=== PATIENT | male | born 1935 | race Two or more races ===

== ENCOUNTER 2023-08-11 07:56 | Outpatient (OUT) | payer MEDICARE, BC, SELFPAY ==
[2023-08-11 08:41] LABS: Anion Gap 10.6; BUN Creatinine Ratio 21.6; Calcium 10.3 mg/dL (8.5-10.1); Carbon Dioxide 29.2 mmol/L (21.0-32.0); Chloride 109 mmol/L (98-107); Estimated GFR (African America 59 (>=60); Estimated GFR (Non-African Ame 48 (>=60); Glucose 92 mg/dL (74-106); Potassium 3.8 mmol/L (3.5-5.1); Sodium 145 mmol/L (136-145)
[2023-08-11 09:01] LABS: Basophils Absolute Auto 0.1 10^3/uL (0.0-0.1); Basophils Percent Auto 1.2 % (0.2-2.0); Eosinophils Absolute Auto 0.3 10^3/uL (0.0-0.7); Eosinophils Percent Auto 3.1 % (0.9-7.0); Hematocrit 41.8 % (42.0-54.0); Immature Granulocytes Abs Auto 0.02 10^3/uL (0.00-0.03); Immature Granulocytes Pct Auto 0.2 % (0.0-0.5); Lymphocytes Absolute Auto 1.7 10^3/uL (1.2-3.8); Lymphocytes Percent Auto 20.9 % (20.5-60.0); Mean Corpuscular HGB Conc 31.1 g/dL (29.9-35.2); Mean Corpuscular Hemoglobin 30.1 pg (25.9-34.0); Mean Corpuscular Volume 96.8 fL (80.0-94.0); Mean Platelet Volume 10.9 fL (9.5-13.5); Monocytes Absolute Auto 0.6 10^3/uL (0.3-0.8); Monocytes Percent Auto 6.9 % (1.7-12.0); Neutrophils Absolute Auto 5.5 10^3/uL (1.4-6.5); Neutrophils Percent Auto 67.7 % (43.0-75.0); Platelet Count 223 10^3/uL (150-450); Red Blood Count 4.32 10^6/uL (4.70-6.10); Red Cell Distribution Width 13.8 % (11.0-15.0); White Blood Count 8.1 10^3/uL (4.0-11.0)
--- NOTE | 2023-08-11 10:00 | MR_ITS ---
The [address] [address] Patient Name: AINSLEY CHONG MRN: [id number] date: 1935 Sex: M Assigned Patient Location: MRI Current Patient Location: MRI Accession/Order Number: [id number] Exam Date: 08/11/2023 10:00 Report Date: 08/11/2023 14:09 At the request of: ANIL NAIK Procedure: MR lumbar spine wo con MR lumbar spine wo con, 08/11/2023 10:00 AM EDT INDICATION: Compression Fracture Of Lumbar Vertebra S32.000A COMPARISON: There is no appropriate prior study for comparison. TECHNIQUE: Multiplanar, multisequential MRI images of lumbar spine were obtained without contrast. FINDINGS: For dictation purposes, the lowest complete disc space in the lumbar spine considered as L5-S1. Bilateral renal lesions with T2 prolongation not fully characterized by this study and statistically may suggest simple renal cyst. 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 There is acute to subacute compression fraction of L1 with loss of height for approximately 20%. Endplate changes type I at the level of L1-L2 are noted. The remainder of vertebral height is preserved. The conus medullaris is at the level of L1. No signal abnormality within the visualized spinal cord is noted. At the level T11-T12, there is bilateral mild neuroforaminal narrowing and mild canal stenosis. At the level of T12-L1,there is bilateral mild neuroforaminal narrowing and no canal stenosis. At the level of L1-L2, there are disc bulge with severe left and moderate right neuroforaminal narrowing and no canal stenosis. At the level of L2-L3, there are disc bulge with severe right left and moderate right neuroforaminal narrowing and no canal stenosis. At the level of L3-4, there are disc bulge with moderate bilateral neuroforaminal narrowing and moderate canal stenosis. At the level of L4-5, there are disc bulge with moderate right and mild left neuroforaminal narrowing and no canal stenosis. At the level of L5-S1, there are disc bulge with severe bilateral neuroforaminal narrowing and no canal stenosis. Moderate atrophy of the right paraspinal muscle at the level of L5-S1. MR/MR lumbar spine wo con IMPRESSION: Acute to subacute compression fracture of L1 with loss of height for approximately 20%. Moderate degenerative changes of lumbar spine in particular at L1-L2, L2-L3 and L5-S1. A stat note was submitted to inform the clinician at the 2:08 PM. Electronically authenticated by: YOANA EDWARD Date: 08/11/2023 14:09
[2023-08-12 05:07] LABS: Lithium (Eskalith(R)), Serum 0.7 mmol/L (0.5-1.2)
== END 2023-08-11 07:57 | disposition home or self-care (01) ==
PROVIDERS: PCP Family Medicine; Visit Provider Family Medicine
DX: S32.000A Wedge compression fracture of unspecified lumbar vertebra, initial encounter for closed fracture (principal); N39.0 Urinary tract infection, site not specified; I10 Essential (primary) hypertension; Z51.81 Encounter for therapeutic drug level monitoring
CPT/HCPCS: 36415; 72148; 80048; 80178; 85025; 87086

== ENCOUNTER 2023-08-19 00:54 | Observation (INO) | payer MEDICARE, BC, SELFPAY ==
[2023-08-19] VITALS (9 sets, daily range): BP systolic 92–134; BP diastolic 41–93; PULSE 59–104; TEMP 36.2–37; O2SAT 92–98; BMI 20.3
--- NOTE | 2023-08-19 01:33 | ED.AMS1 ---
HPI - Altered Mental Status General Chief Complaint: Altered Mental Status Stated Complaint: altered mental status Time Seen by Provider: 08/19/23 01:21 Source: family Mode of arrival: Wheelchair Limitations: altered mental status and physical limitation History of Present Illness HPI narrative: past history of dementia. known L1 compression fracture. Lives in [place]. Brought back to [place] to live with his son to get help medically but wants to return to [place]. Not eating or drinking past few days and loosing weight. Tonight confused and trying to take the top off of the back of the commode so he could urinate in it. History of bladder CA and enlarged prostate MD complaint: Reports confusion Related Data Home Medications ?Medication ?Instructions ?Recorded ?Confirmed amlodipine 5 mg tablet 5 mg PO DAILY 08/19/23 08/19/23 aspirin 81 mg tablet,delayed 81 mg PO DAILY 08/19/23 08/19/23 release atorvastatin 80 mg tablet 80 mg PO DAILY 08/19/23 08/19/23 baclofen 10 mg tablet 5 mg PO BEDTIME 08/19/23 08/19/23 gentamicin 0.3 % eye drops 1 drp ophthalmic (eye) Q6H 08/19/23 08/19/23 lithium carbonate 300 mg capsule 300 mg PO DAILY 08/19/23 08/19/23 mirtazapine 15 mg tablet 15 mg PO DAILY 08/19/23 08/19/23 omeprazole 20 mg capsule,delayed 20 mg PO DAILY 08/19/23 08/19/23 release telmisartan 80 mg tablet 80 mg PO DAILY 08/19/23 08/19/23 tramadol 50 mg tablet 50 mg PO BEDTIME 08/19/23 08/19/23 Allergies Allergy/AdvReac Type Severity Reaction Status Date / Time No Known Drug Allergies Allergy Verified 08/19/23 01:02 Review of Systems ROS Status of ROS unobtainable due to mental status [facility] Medical History (Updated 08/19/23 @ 03:13 by Deven Dawkins MD) UTI (urinary tract infection) ?N39.0 - Urinary tract infection, site not specified (ICD-10) Degenerative disc disease Normal esophagogastroduodenoscopy (EGD) ?Z01.89 - Encounter for other specified special examinations (ICD-10) 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 neoplasm of extrahepatic bile duct (ICD-10) Bowel obstruction ?K56.609 - Unspecified intestinal obstruction, unspecified as to partial versus complete obstruction (ICD-10) Skin cancer ?C44.90 - Unspecified malignant neoplasm of skin, unspecified (ICD-10) Bladder cancer ?C67.9 - Malignant neoplasm of bladder, unspecified (ICD-10) Appendicitis ?K37 - Unspecified appendicitis (ICD-10) Stroke ?I63.9 - Cerebral infarction, unspecified (ICD-10) Dementia ?F03.90 - Unspecified dementia, unspecified severity, without behavioral disturbance, psychotic disturbance, mood disturbance, and anxiety (ICD-10) Bipolar 1 disorder ?F31.9 - Bipolar disorder, unspecified (ICD-10) Surgical History (Updated 08/19/23 @ 01:39 by Juana Schmidt) History of hernia surgery ?Z98.890 - Other specified postprocedural states (ICD-10) ?Z87.19 - Personal history of other diseases of the digestive system (ICD-10) S/P TURP (status post transurethral resection of prostate) ?Z90.79 - Acquired absence of other genital organ(s) (ICD-10) H/O shoulder surgery ?Z98.890 - Other specified postprocedural states (ICD-10) Exam Constitutional Vital Signs, click to edit/add: Last Vital Signs Pulse 104 H 08/19/23 01:02 Resp 18 08/19/23 01:02 BP 134/93 H 08/19/23 01:02 Pulse Ox 98 08/19/23 01:02 O2 Del Method Room Air 08/19/23 01:02 Common normals: no apparent distress and average body habitus (frail) Eye Common normals: EOMs intact bilaterally Respiratory Common normals: normal respiratory effort, no retractions and no use of accessory muscles Cardio Common normals: regular rate and regular rhythm GI Common normals: Normal to inspection, nondistended, normoactive bowel sounds present Extremity Common normals: normal to inspection Neuro Common normals: moves all extremities Sensorium/orientation: awake Course Vital Signs Vital signs: Vital Signs Pulse Rate 104 H 08/19/23 01:02 Respiratory Rate 18 08/19/23 01:02 Blood Pressure 134/93 H 08/19/23 01:02 Pulse Oximetry 98 08/19/23 01:02 Oxygen Delivery Method Room Air 08/19/23 01:02 Pulse Rate 104 H 08/19/23 01:02 Respiratory Rate 18 08/19/23 01:02 Blood Pressure 134/93 H 08/19/23 01:02 Pulse Oximetry 98 08/19/23 01:02 Oxygen Delivery Method Room Air 08/19/23 01:02 MDM - Altered Mental Status MDM Narrative Medical decision making narrative: patient has past history of dementia. Presents more confused than normal and not eating or drinking for a couple of days. Gross exam finds frail appearing male in no distress who is cooperative. labs positive for pyuria. Patient also found to be dehydrated. Discussed with the hospitalist and patient accepted for admission Lab Data Labs: Lab Results 08/19/23 08/19/23 Range/Units 01:58 02:11 WBC 8.1 (4.0-11.0) 10^3/uL RBC 4.18 L (4.70-6.10) 10^6/uL Hgb 12.7 L (14.0-18.0) g/dL Hct 40.2 L (42.0-54.0) % MCV 96.2 H (80.0-94.0) fL MCH 30.4 (25.9-34.0) pg MCHC 31.6 (29.9-35.2) g/dL RDW 13.9 (11.0-15.0) % Plt Count 181 (150-450) 10^3/uL MPV 10.7 (9.5-13.5) fL Neut % (Auto) 82.7 H (43.0-75.0) % Lymph % (Auto) 10.7 L (20.5-60.0) % Geary % (Auto) 5.4 (1.7-12.0) % Eos % (Auto) 0.1 L (0.9-7.0) % Baso % (Auto) 0.9 (0.2-2.0) % Neut # (Auto) 6.7 H (1.4-6.5) 10^3/uL Lymph # (Auto) 0.9 L (1.2-3.8) 10^3/uL Geary # (Auto) 0.4 (0.3-0.8) 10^3/uL Eos # (Auto) 0.0 (0.0-0.7) 10^3/uL Baso # (Auto) 0.1 (0.0-0.1) 10^3/uL Abs Immat Gran (auto) 0.02 (0.00-0.03) 10^3/uL Imm/Tot Granulo (auto) 0.2 (0.0-0.5) % Sodium 145 (136-145) mmol/L Potassium 4.3 (3.5-5.1) mmol/L Chloride 110 H (98-107) mmol/L Carbon Dioxide 25.3 (21.0-32.0) mmol/L Anion Gap 14.0 BUN 42.0 H (7.0-18.0) mg/dL Creatinine 1.63 H (0.70-1.30) mg/dL Est GFR ( Amer) 49 L (>=60) Est GFR (Non-Af Amer) 40 L (>=60) BUN/Creatinine Ratio 25.8 Glucose 120 H (74-106) mg/dL Calcium 9.7 (8.5-10.1) mg/dL Troponin I High Sens 11.6 (4.0-76.1) pg/mL Urine Color Lt. yellow (YELLOW) Urine Clarity Clear (CLEAR) Urine pH 6.0 (5.0-9.0) Ur Specific [place] 1.020 (1.005-1.025) Urine Protein Trace (NEG/TRACE) mg/dL Urine Glucose (UA) Negative (NEGATIVE) mg/dL Urine Ketones Trace A (NEGATIVE) mg/dL Urine Occult Blood Large A (NEGATIVE) Urine Nitrite Negative (NEGATIVE) Urine Bilirubin Small A (NEGATIVE) Urine Urobilinogen 2.0 A (0.2-1.0) EU/dL Ur Leukocyte Esterase Small A (NEGATIVE) Urine RBC 5-10 A (0-2) #/HPF Urine WBC 5-10 A (NONE SEEN) #/HPF Ur Squamous Epith Cells Few A (NONE/RARE) #/LPF Urine Crystals None seen (None Seen) #/HPF Urine Bacteria None seen (NONE SEEN) #/HPF Urine Casts None seen (NONE SEEN) #/LPF Urine Mucus Small A (NONE SEEN) Ur Culture Indicated? Yes Discharge Plan Discharge Stand Alone Forms: Portal Instructions Chief Complaint: Altered Mental Status Clinical Impression: Acute UTI, Altered mental status, Dehydration Patient Disposition: Home, Self-Care Prescriptions / Home Meds: No Action lithium carbonate 300 mg capsule 300 mg PO DAILY baclofen 10 mg tablet 5 mg PO BEDTIME tramadol 50 mg tablet 50 mg PO BEDTIME aspirin 81 mg tablet,delayed release (DR/EC) 81 mg PO DAILY atorvastatin 80 mg tablet 80 mg PO DAILY amlodipine 5 mg tablet 5 mg PO DAILY telmisartan 80 mg tablet 80 mg PO DAILY mirtazapine 15 mg tablet 15 mg PO DAILY omeprazole 20 mg capsule,delayed release(DR/EC) 20 mg PO DAILY gentamicin 0.3 % drops 1 drp ophthalmic (eye) Q6H Print Language: Mauritanian Additional Instructions: use ibuprofen or similar for pain Referrals: Lyn Osorio MD [Primary Care Provider] - 1 week
--- NOTE | 2023-08-19 01:37 | XR_ITS ---
The [address] [address] Patient Name: AINSLEY CHOGN MRN: [id number] date: 1935 Sex: M Assigned Patient Location: ER Current Patient Location: ER Accession/Order Number: [id number] Exam Date: 08/19/2023 01:50 Report Date: 08/19/2023 02:42 At the request of: ALESSANDRO GODOY Procedure: XR chest 1V CLINICAL HISTORY: Confusion COMPARISON: None FINDINGS: Portable AP view of the chest obtained. Cardiomediastinal silhouette is normal. Lungs are clear, no evidence of infiltrate, suspicious nodule, or mass. No evidence of significant pleural fluid on this portable projection. No acute bony abnormality. XR/XR chest 1V IMPRESSION: No acute abnormality. Electronically authenticated by: FELIX CAMARGO Date: 08/19/2023 02:42
[2023-08-19] MEDS: 0.9 % SODIUM CHLORIDE 500 ML IV (01:44)
[2023-08-19] MEDS: ONDANSETRON PF 4 MG/2 ML VIAL IV (01:47)
[2023-08-19 02:05] LABS: Basophils Absolute Auto 0.1 10^3/uL (0.0-0.1); Basophils Percent Auto 0.9 % (0.2-2.0); Eosinophils Percent Auto 0.1 % (0.9-7.0); Hematocrit 40.2 % (42.0-54.0); Hemoglobin 12.7 g/dL (14.0-18.0); Immature Granulocytes Abs Auto 0.02 10^3/uL (0.00-0.03); Immature Granulocytes Pct Auto 0.2 % (0.0-0.5); Lymphocytes Absolute Auto 0.9 10^3/uL (1.2-3.8); Lymphocytes Percent Auto 10.7 % (20.5-60.0); Mean Corpuscular HGB Conc 31.6 g/dL (29.9-35.2); Mean Corpuscular Hemoglobin 30.4 pg (25.9-34.0); Mean Corpuscular Volume 96.2 fL (80.0-94.0); Mean Platelet Volume 10.7 fL (9.5-13.5); Monocytes Absolute Auto 0.4 10^3/uL (0.3-0.8); Monocytes Percent Auto 5.4 % (1.7-12.0); Neutrophils Absolute Auto 6.7 10^3/uL (1.4-6.5); Neutrophils Percent Auto 82.7 % (43.0-75.0); Platelet Count 181 10^3/uL (150-450); Red Blood Count 4.18 10^6/uL (4.70-6.10); Red Cell Distribution Width 13.9 % (11.0-15.0); White Blood Count 8.1 10^3/uL (4.0-11.0)
[2023-08-19 02:22] LABS: BUN Creatinine Ratio 25.8; Calcium 9.7 mg/dL (8.5-10.1); Carbon Dioxide 25.3 mmol/L (21.0-32.0); Chloride 110 mmol/L (98-107); Estimated GFR (African America 49 (>=60); Estimated GFR (Non-African Ame 40 (>=60); Glucose 120 mg/dL (74-106); Potassium 4.3 mmol/L (3.5-5.1); Sodium 145 mmol/L (136-145); Troponin I High Sensitivity 11.6 pg/mL (4.0-76.1)
[2023-08-19 02:23] LABS: Bilirubin Urine SMALL (NEGATIVE); Blood Urine LARGE (NEGATIVE); Clarity Urine CLEAR (CLEAR); Color Urine LT. YELLOW (YELLOW); Glucose Urine UA NEGATIVE (NEGATIVE); Ketones Urine TRACE mg/dL (NEGATIVE); Leukocyte Esterase Urine SMALL (NEGATIVE); Nitrite Urine NEGATIVE (NEGATIVE); Protein Urine TRACE mg/dL (NEG/TRACE); Urine Microscopic Indicated YES
[2023-08-19 02:32] LABS: Bacteria Urine NONE SEEN #/HPF (NONE SEEN); Mucus Urine SMALL (NONE SEEN)
[2023-08-19 02:33] LABS: Cast Seen? NONE SEEN #/LPF (NONE SEEN); Crystals Seen? None Seen #/HPF (None Seen); Squamous Epithelial Cell Urine FEW #/LPF (NONE/RARE); Urine Culture Indicated YES
[2023-08-19] MEDS: CEFTRIAXONE 1,000 MG in 0.9 % SODIUM CHLORIDE 50 ML 100 MG IV (03:08)
--- NOTE | 2023-08-19 04:27 | PC.NURSE ---
PER SON, PT ' BASELINE IS ALERT TO NAME, DATE OF , AND MOTH. pT WAS ORIENTED TO PLACE WELL. Son stated to this nurse that when pt is feeling better pt can become verbally abusive towards staff. Son also stated that pt does have hallucinations and will speak to people that are not there.
[2023-08-19] MEDS: 0.9 % SODIUM CHLORIDE 1,000 ML 100 ML IV ×2 (05:51→15:27)
[2023-08-19 08:14] LABS: Lactate/Lactic Acid 1.4 mmol/L (0.4-2.0)
[2023-08-19 08:17] LABS: Alanine Aminotransferase 19 U/L (16-63); Albumin Globulin Ratio 1.1; Albumin Level 3.4 g/dL (3.4-5.0); Alkaline Phosphatase 98 U/L (46-116); Aspartate Amino Transferase 25 U/L (15-37); Bilirubin Direct 0.5 mg/dL (0.0-0.2); Bilirubin Total 1.4 mg/dL (0.2-1.0); Globulin 3.2 g/dL; Magnesium 2.2 mg/dL (1.8-2.4); Thyroid Stimulating Hormone 2.904 uIU/mL (0.358-3.740); Total Protein 6.6 g/dL (6.4-8.2)
--- NOTE | 2023-08-19 09:05 | SWNOTE1 ---
SW consulted for Advanced Directives. SW reviewing chart and dementia is listed as a diagnosis for pt. SW to complete assessment with pt or son to determine whether Advanced Directives can be completed or if family/patient have already completed.
[2023-08-19] MEDS: LEVOFLOXACIN IN DEXTROSE 5 % 750 MG/150 ML IV.SOLN 100 MG IV (10:12)
[2023-08-19] MEDS: TAMSULOSIN HCL 0.4 MG CAPSULE 0.400000000000000022 MG PO (10:13)
[2023-08-19] MEDS: ASPIRIN 81 MG TABLET.DR PO (10:13)
[2023-08-19] MEDS: MIRTAZAPINE 15 MG TABLET PO (10:13)
[2023-08-19] MEDS: LITHIUM CARBONATE 150 MG CAPSULE 300 MG PO (10:13)
[2023-08-19] MEDS: GENTAMICIN SULFATE 0.3% OP SOL 100 DROP/5 ML BOTTLE OP ×3 (10:13→21:23)
[2023-08-19] MEDS: ATORVASTATIN CALCIUM 40 MG TABLET 80 MG PO (10:14)
[2023-08-19] MEDS: OMEPRAZOLE 20 MG CAPSULE.DR PO (10:14)
--- NOTE | 2023-08-19 11:18 | P.HP_ITS ---
HPI H&P: HPI History of Present Illness Chief complaint: altered mental status UTI Narrative: Patient with a history of baseline dementia presented to the emergency room after midnight with increasing altered mental status. Found to have acute UTI as a complicating factor as well as some mild dehydration.. When I saw patient up on the medical surgical floor he did awaken to conversation. Seem to answer questions appropriately but seems very weak. Opioid HPI Opioid Management Most Recent Opioid Data: Last Pain Assessment 08/19/23 12:07 Last ORT Total Score 2 08/19/23 04:05 Last ORT Risk Category Low Risk 08/19/23 04:05 Review of Systems ROS Status of ROS 10 or more systems reviewed and unremark able except as noted in history and below [facility] Medical History (Updated 08/19/23 @ 03:13 by Deven Dawkins MD) UTI (urinary tract infection) ?N39.0 - Urinary tract infection, site not specified (ICD-10) Degenerative disc disease Normal esophagogastroduodenoscopy (EGD) ?Z01.89 - Encounter for other specified special examinations (ICD-10) 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 neoplasm of extrahepatic bile duct (ICD-10) Bowel obstruction ?K56.609 - Unspecified intestinal obstruction, unspecified as to partial versus complete obstruction (ICD-10) Skin cancer ?C44.90 - Unspecified malignant neoplasm of skin, unspecified (ICD-10) Bladder cancer ?C67.9 - Malignant neoplasm of bladder, unspecified (ICD-10) Appendicitis ?K37 - Unspecified appendicitis (ICD-10) Stroke ?I63.9 - Cerebral infarction, unspecified (ICD-10) Dementia ?F03.90 - Unspecified dementia, unspecified severity, without behavioral disturbance, psychotic disturbance, mood disturbance, and anxiety (ICD-10) Bipolar 1 disorder ?F31.9 - Bipolar disorder, unspecified (ICD-10) Surgical History (Updated 08/19/23 @ 01:39 by Juana Schmidt) History of hernia surgery ?Z98.890 - Other specified postprocedural states (ICD-10) ?Z87.19 - Personal history of other diseases of the digestive system (ICD-10) S/P TURP (status post transurethral resection of prostate) ?Z90.79 - Acquired absence of other genital organ(s) (ICD-10) H/O shoulder surgery ?Z98.890 - Other specified postprocedural states (ICD-10) Social History (Updated 08/19/23 @ 04:46 by Margarita Smith RN) Within the past year, how often did you have a drink containing alcohol: never Within the past year, how many standard drinks containing alcohol did you have on a typical day: 1 or 2 Within the past year, how often did you have six or more drinks on one occasion: never Total score: 0 Score interpretation: A score less than 4 is consistent with normal alcohol consumption. Smoking status: Unknown if ever smoked Second hand tobacco smoke exposure: No Non-prescribed substance use: denies use Previous occupational history: retired Known occupational exposures/hazards: No Highest level of school completed/degree received: don't know Are you now , , , , never or living with a partner: don't know In a typical week, how many times do you talk on the telephone with family, friends, or neighbors: 3 or more times per week How often do you get together with friends or relatives: 3 or more times per week How often do you attend worship or baptist services: never Do you belong to any clubs or organizations such as worship groups unions, [employer] or athletic groups, or school groups: no Total score: 1 Score interpretation: A score of less than or equal to 1 indicates the most socially isolated. Little interest or pleasure in doing things: not at all Feeling down, depressed, or hopeless: not at all Feel stressed/tense/nervous/anxious/difficulty sleeping: not at all Due to disability, difficulty making decisions: No Meds Home Medications and Allergies Home Medications ?Medication ?Instructions ?Recorded ?Confirmed ?Type amlodipine 5 mg tablet 5 mg PO DAILY 08/19/23 08/19/23 History aspirin 81 mg tablet,delayed 81 mg PO DAILY 08/19/23 08/19/23 History release atorvastatin 80 mg tablet 80 mg PO DAILY 08/19/23 08/19/23 History baclofen 10 mg tablet 10 mg PO BEDTIME 08/19/23 08/19/23 History donepezil 5 mg tablet 5 mg PO .QHS 08/19/23 08/19/23 History gentamicin 0.3 % eye drops 1 drp ophthalmic (eye) Q6H 08/19/23 08/19/23 History lithium carbonate 300 mg capsule 300 mg PO DAILY 08/19/23 08/19/23 History mirtazapine 15 mg tablet 15 mg PO DAILY 08/19/23 08/19/23 History omeprazole 20 mg capsule,delayed 20 mg PO DAILY 08/19/23 08/19/23 History release tamsulosin 0.4 mg capsule 0.4 mg PO .morning 08/19/23 08/19/23 History telmisartan 80 mg tablet 80 mg PO DAILY 08/19/23 08/19/23 History tramadol 50 mg tablet 50 mg PO BEDTIME 08/19/23 08/19/23 History Allergies Allergy/AdvReac Type Severity Reaction Status Date / Time morphine Allergy Severe Hallucinati Verified 08/19/23 04:07 ng adhesive tape Allergy Intermediate Rash Verified 08/19/23 04:07 Exam Constitutional Vital Signs, click to edit/add: Last Vital Signs Temp 97.6 F 08/19/23 08:25 Pulse 61 08/19/23 08:25 Resp 16 08/19/23 08:25 BP 92/54 08/19/23 08:25 Pulse Ox 94 L 08/19/23 08:25 O2 Del Method Room Air 08/19/23 08:25 Documenting provider has reviewed patient's vital signs: yes Common normals: no apparent distress Respiratory Common normals: normal respiratory effort Cardio Common normals: regular rate and regular rhythm GI Common normals: Normal to inspection, nondistended, normoactive bowel sounds present (Extremely thin) Extremity Common normals: normal to inspection, full ROM, normal capillary refill and no clubbing, cyanosis or edema Neuro Other: Lethargic but arousable, no focal neurological deficits Results Labs Labs: Short CBC 08/19/23 Range/Units 01:58 WBC 8.1 (4.0-11.0) 10^3/uL Hgb 12.7 L (14.0-18.0) g/dL Hct 40.2 L (42.0-54.0) % Plt Count 181 (150-450) 10^3/uL BMP 08/19/23 01:58 Sodium 145 Potassium 4.3 Chloride 110 H Carbon Dioxide 25.3 BUN 42.0 H Creatinine 1.63 H Glucose 120 H Calcium 9.7 Liver Function 08/19/23 Range/Units 01:58 Total Bilirubin 1.4 H (0.2-1.0) mg/dL Direct Bilirubin 0.5 H (0.0-0.2) mg/dL AST 25 (15-37) U/L ALT 19 (16-63) U/L Alkaline Phosphatase 98 (46-116) U/L Albumin 3.4 (3.4-5.0) g/dL Urine 08/19/23 Range/Units 02:11 Urine Color Lt. yellow (YELLOW) Urine Clarity Clear (CLEAR) Urine pH 6.0 (5.0-9.0) Ur Specific [place] 1.020 (1.005-1.025) Urine Protein Trace (NEG/TRACE) mg/dL Urine Glucose (UA) Negative (NEGATIVE) mg/dL Assessment and Plan Assessment and Plan (1) Dehydration: (2) Acute UTI: (3) Altered mental status: Plan Hypotension, altered mental status, acute kidney injury secondary to acute UTI and complicated by baseline dementia-continue with fluids, continue with IV antibiotics, cultures pending for tomorrow. Family would like if at all possible to have him discharged to home tomorrow. Not looking at any type of rehab. Dementia-continue with home medications Acute kidney injury secondary to dehydration Generalized anxiety disorder-continue with home medications, check lithium level, concerning for lithium toxicity based on renal injury GERD-continue with home medications BPH-continue with home medications Observation criteria: Patient came in after midnight, he is likely to improve to the point that he can be discharged home prior to 2 midnights. Some medically necessary treatment will not likely span 2 midnights will start patient off as observation status. Based on his symptoms and progression and overall improvement, this may need to be changed to inpatient status if medically necessary treatment is going to span 2 midnights Urinary Catheter Management Urinary Catheter Management Straight: Cath placed during this visit: no
--- NOTE | 2023-08-19 11:28 | CM.NOTE ---
Rounds made with Dr. Estrada, no discharge today. Pt lives at home with his children. PT and OT will evaluate pt today for discharge planning and possible HH.
--- NOTE | 2023-08-19 11:37 | SWNOTE1 ---
SW called pt's son to speak to him about discharge planning. Pt's son and daughter in law on phone during conversation. Pt just moved in with them 2 weeks ago. He had lived in [place] for 35 years. Pt's son and daughter in law voiced they may be in over there heads in regards to caring for him at home. Daughter in law voiced they have a safe home for him but he does wonder at night and he does voice he sees things that are not there. They also spoke about him not taking his meds either. They have been able to get him in to a PCP and they have had him assessed by neurologist. They are working on getting power of business attorney through a client server developer. They voiced they are not sure what to from here. SW did speak with them about home health, therapy and nursing possibly an aide to assist with bathing. They are in agreement. They do understand it is not nursing home. SW did also speak with them about private caregivers as well. They are interested in this list, SW to place in pt's room. Pt's son did voice he has shoulder surgery later this week. SW did speak with them about respite stay at nursing facility and it being out of pocket, but it allows caregivers to have a break. SW did also speak with them about nursing home care being out of pocket. SW also let them know about medicaid and applying for it. They voiced understanding and do not want to make any rash decisions right now. They want to pursue HH and possible caregivers. SW did review list from medicare.gov with star ratings about home health. They would like [facility]. Referral sent to [facility]. Referral included face sheet, ED note, H&, and PT/OT notes. Medicare Outpatient Observation Notice reviewed and discussed with patient's son and daughter in law. Pt. verbalized understanding and signed the form. Original given to patient and copy placed in patient?s chart.
--- NOTE | 2023-08-19 11:53 | SWNOTE1 ---
SW did speak with son and daughter in law about advanced directives, they voiced they are going through a pipe assembly worker to get this done due to pt's dementia.
--- NOTE | 2023-08-19 12:05 | CM.NOTE ---
Medicare Outpatient Observation Notice discussed with pt, pt verbalizes understanding and signs paper. Original given to pt and copy placed in pt's chart.
[2023-08-19] MEDS: LACTOSE -REDUCED (ENSURE ORIGINAL 237 ML LIQUID) PO ×2 (15:27→21:23)
--- NOTE | 2023-08-19 15:40 | SWNOTE1 ---
SW stopped in to room, pt's son in room. SW provided him with private caregiver list and list of facilities in the area in case they need respite stay or intermediate eventually.
--- NOTE | 2023-08-19 16:12 | SWNOTE1 ---
[facility] is able to accept.
--- NOTE | 2023-08-19 19:47 | PC.NURSE ---
Dark jennifer concentrated urine noted after using urinal.
[2023-08-19] MEDS: BACLOFEN 10 MG TABLET 5 MG PO (21:23)
[2023-08-19] MEDS: TRAMADOL HCL 50 MG TABLET PO (21:24)
[2023-08-19] MEDS: DONEPEZIL HCL 5 MG TABLET PO (21:29)
[2023-08-19] MEDS: LORAZEPAM 2 MG/ML 1 ML VIAL 0.5 MG IV (22:59)
[2023-08-20] MEDS: 0.9 % SODIUM CHLORIDE 1,000 ML 100 ML IV ×3 (01:37→19:46)
[2023-08-20 04:00] VITALS: BP 159/73; PULSE 65; TEMP 36.4; O2SAT 92
[2023-08-20 04:07] LABS: Lithium (Eskalith(R)), Serum 0.9 mmol/L (0.5-1.2)
[2023-08-20 04:08] LABS: Basophils Absolute Auto 0.1 10^3/uL (0.0-0.1); Basophils Percent Auto 0.8 % (0.2-2.0); Eosinophils Absolute Auto 0.1 10^3/uL (0.0-0.7); Eosinophils Percent Auto 1.6 % (0.9-7.0); Hematocrit 36.4 % (42.0-54.0); Hemoglobin 11.5 g/dL (14.0-18.0); Immature Granulocytes Abs Auto 0.02 10^3/uL (0.00-0.03); Immature Granulocytes Pct Auto 0.3 % (0.0-0.5); Lymphocytes Absolute Auto 1.2 10^3/uL (1.2-3.8); Lymphocytes Percent Auto 16.8 % (20.5-60.0); Mean Corpuscular HGB Conc 31.6 g/dL (29.9-35.2); Mean Corpuscular Hemoglobin 30.8 pg (25.9-34.0); Mean Corpuscular Volume 97.6 fL (80.0-94.0); Monocytes Absolute Auto 0.4 10^3/uL (0.3-0.8); Monocytes Percent Auto 4.9 % (1.7-12.0); Neutrophils Absolute Auto 5.6 10^3/uL (1.4-6.5); Neutrophils Percent Auto 75.6 % (43.0-75.0); Platelet Count 139 10^3/uL (150-450); Red Blood Count 3.73 10^6/uL (4.70-6.10); Red Cell Distribution Width 13.9 % (11.0-15.0); White Blood Count 7.4 10^3/uL (4.0-11.0)
[2023-08-20 04:29] LABS: Alanine Aminotransferase 15 U/L (16-63); Albumin Level 2.9 g/dL (3.4-5.0); Alkaline Phosphatase 88 U/L (46-116); Aspartate Amino Transferase 25 U/L (15-37); Bilirubin Total 0.7 mg/dL (0.2-1.0); Calcium 9.4 mg/dL (8.5-10.1); Carbon Dioxide 22.8 mmol/L (21.0-32.0); Chloride 115 mmol/L (98-107); Estimated GFR (African America >60 (>=60); Estimated GFR (Non-African Ame 55 (>=60); Globulin 2.8 g/dL; Glucose 83 mg/dL (74-106); Potassium 3.8 mmol/L (3.5-5.1); Sodium 147 mmol/L (136-145); Total Protein 5.7 g/dL (6.4-8.2)
[2023-08-20 08:00] VITALS: BP 147/80; PULSE 70; TEMP 36.3; O2SAT 92
[2023-08-20 08:50] VITALS: O2SAT 92
[2023-08-20] MEDS: CEFTRIAXONE 1,000 MG in 0.9 % SODIUM CHLORIDE 50 ML 100 MG IV (09:16)
[2023-08-20] MEDS: GENTAMICIN SULFATE 0.3% OP SOL 100 DROP/5 ML BOTTLE OP ×3 (09:20→21:47)
[2023-08-20] MEDS: ATORVASTATIN CALCIUM 40 MG TABLET 80 MG PO (09:23)
[2023-08-20] MEDS: LACTOSE -REDUCED (ENSURE ORIGINAL 237 ML LIQUID) PO ×2 (09:23→21:45)
[2023-08-20] MEDS: ASPIRIN 81 MG TABLET.DR PO (09:23)
[2023-08-20] MEDS: OMEPRAZOLE 20 MG CAPSULE.DR PO (09:23)
[2023-08-20] MEDS: MIRTAZAPINE 15 MG TABLET PO (09:23)
[2023-08-20] MEDS: LITHIUM CARBONATE 150 MG CAPSULE 300 MG PO (09:23)
--- NOTE | 2023-08-20 09:38 | CM.NOTE ---
Rounds made with Dr. Estrada, pt will discharge to home today with family and [facility].
--- NOTE | 2023-08-20 09:43 | P.DS_ITS ---
DS: Providers Provider Date of admission: 08/19/23 03:43 Primary care physician: Lyn Osorio MD Consults: 08/19/23 Consult to Dietitian Routine Reason For Exam: WEIGHT LOSS Reason for consultation: WEIGHT LOSS Has provider been notified: Yes Consult to Harvester Operator Routine Reason for consult:: Advanced Directives 08/19/23 07:43 Occupational Therapy Eval and Treat Routine Reason for consultation: Only if needed for Rehab Has provider been notified: No Physical Therapy Eval and Treat Routine Reason for consultation: Eval and Treat Has provider been notified: No DS: Diagnosis Discharge Diagnosis (1) Dehydration: (2) Acute UTI: (3) Altered mental status: Plan Hypotension, altered mental status, acute kidney injury secondary to acute UTI and complicated by baseline dementia-continue with fluids, continue with IV antibiotics, cultures pending for tomorrow. Family would like if at all possible to have him discharged to home tomorrow. Not looking at any type of rehab. Dementia-continue with home medications Acute kidney injury secondary to dehydration Generalized anxiety disorder-continue with home medications, check lithium level, concerning for lithium toxicity based on renal injury GERD-continue with home medications BPH-continue with home medications Observation criteria: Patient came in after midnight, he is likely to improve to the point that he can be discharged home prior to 2 midnights. Some medically necessary treatment will not likely span 2 midnights will start patient off as observation status. Based on his symptoms and progression and overall improvement, this may need to be changed to inpatient status if medically necessary treatment is going to span 2 midnights Urinary Catheter Management Urinary Catheter Management Straight: Cath placed during this visit: no ? DS: Summary Time Spent with Patient Time attestation: Total time spent providing and/or coordinating discharge services: Exam Constitutional Vital Signs, click to edit/add: Last Vital Signs Temp 97.4 F L 08/20/23 08:00 Pulse 70 08/20/23 08:00 Resp 20 08/20/23 08:00 BP 147/80 H 08/20/23 08:00 Pulse Ox 92 L 08/20/23 08:50 O2 Del Method Room Air 08/20/23 08:50 DS: Data Data Completed and Pending Labs on day of discharge: Labs from last 24 hours 08/20/23 08/19/23 03:55 01:58 WBC 7.4 RBC 3.73 L Hgb 11.5 L Hct 36.4 L MCV 97.6 H MCH 30.8 MCHC 31.6 RDW 13.9 Plt Count 139 L MPV 11.0 Neut % (Auto) 75.6 H Lymph % (Auto) 16.8 L [place] % (Auto) 4.9 Eos % (Auto) 1.6 Baso % (Auto) 0.8 Neut # (Auto) 5.6 Lymph # (Auto) 1.2 [place] # (Auto) 0.4 Eos # (Auto) 0.1 Baso # (Auto) 0.1 Abs Immat Gran (auto) 0.02 Imm/Tot Granulo (auto) 0.3 Sodium 147 H Potassium 3.8 Chloride 115 H Carbon Dioxide 22.8 Anion Gap 13.0 BUN 31.0 H Creatinine 1.24 Est GFR ( Amer) >60 Est GFR (Non-Af Amer) 55 L BUN/Creatinine Ratio 25.0 Glucose 83 Calcium 9.4 Total Bilirubin 0.7 AST 25 ALT 15 L Alkaline Phosphatase 88 Total Protein 5.7 L Albumin 2.9 L Globulin 2.8 Albumin/Globulin Ratio 1.0 [place] 0.9 Discharge Plan Discharge Disposition: Home Health Service Discharge Medications: New levofloxacin 500 mg tablet 500 mg PO DAILY 10 Days Qty: 10 0RF Continued lithium carbonate 300 mg capsule 300 mg PO DAILY baclofen 10 mg tablet 10 mg PO BEDTIME tramadol 50 mg tablet 50 mg PO BEDTIME aspirin 81 mg tablet,delayed release (DR/EC) 81 mg PO DAILY atorvastatin 80 mg tablet 80 mg PO DAILY amlodipine 5 mg tablet 5 mg PO DAILY telmisartan 80 mg tablet 80 mg PO DAILY mirtazapine 15 mg tablet 15 mg PO DAILY omeprazole 20 mg capsule,delayed release(DR/EC) 20 mg PO DAILY gentamicin 0.3 % drops 1 drp ophthalmic (eye) Q6H tamsulosin 0.4 mg capsule 0.4 mg PO .morning donepezil 5 mg tablet 5 mg PO .QHS Print Language: Turkish Personnel Placement Specialist/Dirt Bike Racer Instructions: Discharge with [facility], phone number is [phone]. They should contact within 48 hours of discharge. If you have not heard from them within 48 hours, reach out to the number listed above. Private Caregiver list provided and list of nursing facilities in the area provided as well. Forms: Portal Instructions Follow Up Appointments: Aug.25 @ 10:30am with Dr. sOorio [phone]
[2023-08-20] MEDS: TAMSULOSIN HCL 0.4 MG CAPSULE 0.400000000000000022 MG PO (10:53)
[2023-08-20 11:44] VITALS: BP 157/75; PULSE 65; O2SAT 94
--- NOTE | 2023-08-20 12:30 | PT.DAILY ---
Physical Therapy Daily Note PT Daily Note/Assess Start: 08/20/23 12:23 Freq: Status: Active Protocol: Document 08/20/23 10:35 SCAR (Rec: 08/20/23 12:29 SCAR [id number]) Physical Therapy Daily Note/Assessment Time In/Time Out Time In 11:38 Time Out 11:57 Subjective Subjective Patient heavily sleeping but was able to wake up. Patient does have dementia and is confused. After a few minutes patient agrees to walk and sit in chair. Post RX nursing notified therapy that patient had IV Ativan last night, so is probably still groggery from that. Therapeutic Activity Time Therapeutic Activity Minutes (minutes) 19 Therapeutic Activity Units 1 Therapeutic Activity Treatment Therapeutic Activity Comments Supine to sit with SBA, verbal cues with simple commands. Sit to stand CGA. Gait after 10' with CGA patient begins reaching for IV poll and objects and attempts to sit. Max assist x2 to prevent fall to floor. Was able to get patient to reach for each hand and was safely ambulated back to chair 10-15' with TERRAZZO FINISHER HELPER x2, mod assist as patient wanted to keep knees bent. Total Physical Therapy Time Total Therapy Minutes 19 Total Physical Therapy Units 1 Summary Daily Note Summary Patient demonstrated poor safety with gait today, required max assist x2 to prevent fall. Notified nursing and social work and they request therapy re-attempts after lunch as patient is to go home with family and HH later this afternoon. Edit Time 08/20/23 11:35 SCAR (Rec: 08/20/23 12:30 SCAR [id number]) 08/20/23 10:35=>08/20/23 11:35
--- NOTE | 2023-08-20 13:23 | PT.DAILY ---
Physical Therapy Daily Note PT Daily Note/Assess Start: 08/20/23 12:23 Freq: Status: Active Protocol: Document 08/20/23 13:00 SCAR (Rec: 08/20/23 13:23 SCAR [id number]) Physical Therapy Daily Note/Assessment Time In/Time Out Time In 13:00 Time Out 13:15 Subjective Subjective Patient up in chair but continues to be very lethargic , Lunch in front of him, but not ate, patient holding glass of OJ and had it spilled all over in his lap. Patient did wake up when aroused. Therapeutic Activity Time Therapeutic Activity Minutes (minutes) 10 Therapeutic Activity Units 1 Therapeutic Activity Treatment Chair Transfer Ability Minimum Assist Therapeutic Activity Comments Once awake, patient able to stand up from chair and shuffle over to bed with CGA to min assist. No AD as patient does not use safely. No LOB as noted this AM. Due to patient with decreased level of alertness felt it was unsafe to ambulate patient any farther at this time. Total Physical Therapy Time Total Therapy Minutes 10 Total Physical Therapy Units 1 Summary Daily Note Summary Patient continues with alertness after lunch , was able to arouse and assist patient back to bed with min assist safely but unable to attempt farther ambulation. Notified nursing, and they report this is due to medication and will see how he does with family later this evening. At this time patient is to DC home with family with HH. Patient was not safe with PT today x2 attempts.
[2023-08-20 15:22] VITALS: BP 139/78; PULSE 73; TEMP 36.2; O2SAT 93
--- NOTE | 2023-08-20 18:38 | P.PN_ITS ---
Progress Note: Subjective Subjective Interval history: Patient is somnolent but does answer some questions. He received IV Ativan for his significant agitation overnight. Exam Constitutional Vital Signs, click to edit/add: Last Vital Signs Temp 97.1 F L 08/20/23 15:22 Pulse 73 08/20/23 15:22 Resp 20 08/20/23 15:22 BP 139/78 08/20/23 15:22 Pulse Ox 93 L 08/20/23 15:22 O2 Del Method Room Air 08/20/23 15:22 Documenting provider has reviewed patient's vital signs: yes Common normals: no apparent distress Respiratory Common normals: normal respiratory effort Cardio Common normals: regular rate and regular rhythm GI Common normals: Normal to inspection, nondistended, normoactive bowel sounds present (Extremely thin) Extremity Common normals: normal to inspection, full ROM, normal capillary refill and no clubbing, cyanosis or edema Neuro Other: Lethargic but arousable, no focal neurological deficits Progress Note: Objective Labs Labs: Short CBC 08/20/23 Range/Units 03:55 WBC 7.4 (4.0-11.0) 10^3/uL Hgb 11.5 L (14.0-18.0) g/dL Hct 36.4 L (42.0-54.0) % Plt Count 139 L (150-450) 10^3/uL BMP 08/20/23 03:55 Sodium 147 H Potassium 3.8 Chloride 115 H Carbon Dioxide 22.8 BUN 31.0 H Creatinine 1.24 Glucose 83 Calcium 9.4 Liver Function 08/20/23 Range/Units 03:55 Total Bilirubin 0.7 (0.2-1.0) mg/dL AST 25 (15-37) U/L ALT 15 L (16-63) U/L Alkaline Phosphatase 88 (46-116) U/L Albumin 2.9 L (3.4-5.0) g/dL Progress Note: A&P Assessment and Plan (1) Dehydration: (2) Acute UTI: (3) Altered mental status: Plan Hypotension, altered mental status, acute kidney injury secondary to acute UTI and complicated by baseline dementia-continue with fluids, continue with IV antibiotics, check in cultures later today to see if there is any growth, patient very somnolent secondary to medications, that she will be safe for discharge to home Dementia-continue with home medications-could be a progression of his dementia with the fatigue. Acute kidney injury secondary to dehydration-improved, probably back to his baseline Generalized anxiety disorder-continue with home medications, check lithium level, concerning for lithium toxicity based on renal injury GERD-continue with home medications BPH-continue with home medications Observation criteria: With his altered mental status deteriorated, now with more fatigue, significant progression of sepsis, if he does rebound with withdrawal from the benzodiazepines he could be discharged home later today. Maintain observation status Urinary Catheter Management Urinary Catheter Management Straight: Cath placed during this visit: no
[2023-08-20 19:38] VITALS: BP 151/68; PULSE 77; TEMP 36.4; O2SAT 95
[2023-08-20] MEDS: TRAMADOL HCL 50 MG TABLET PO (21:45)
[2023-08-20] MEDS: BACLOFEN 10 MG TABLET 5 MG PO (21:45)
[2023-08-20] MEDS: DONEPEZIL HCL 5 MG TABLET PO (21:45)
[2023-08-21] VITALS: BP 172/76; PULSE 70; TEMP 36.4; O2SAT 95
[2023-08-21 03:36] VITALS: BP 156/67; PULSE 63; TEMP 36.5; O2SAT 95
[2023-08-21 05:32] LABS: Basophils Absolute Auto 0.1 10^3/uL (0.0-0.1); Basophils Percent Auto 1.2 % (0.2-2.0); Eosinophils Absolute Auto 0.2 10^3/uL (0.0-0.7); Eosinophils Percent Auto 2.4 % (0.9-7.0); Hematocrit 36.4 % (42.0-54.0); Hemoglobin 11.5 g/dL (14.0-18.0); Immature Granulocytes Abs Auto 0.01 10^3/uL (0.00-0.03); Immature Granulocytes Pct Auto 0.2 % (0.0-0.5); Lymphocytes Absolute Auto 1.1 10^3/uL (1.2-3.8); Mean Corpuscular HGB Conc 31.6 g/dL (29.9-35.2); Mean Corpuscular Hemoglobin 30.7 pg (25.9-34.0); Mean Corpuscular Volume 97.1 fL (80.0-94.0); Monocytes Absolute Auto 0.3 10^3/uL (0.3-0.8); Monocytes Percent Auto 4.8 % (1.7-12.0); Neutrophils Absolute Auto 4.9 10^3/uL (1.4-6.5); Neutrophils Percent Auto 74.4 % (43.0-75.0); Platelet Count 137 10^3/uL (150-450); Red Blood Count 3.75 10^6/uL (4.70-6.10); Red Cell Distribution Width 13.7 % (11.0-15.0); White Blood Count 6.6 10^3/uL (4.0-11.0)
[2023-08-21] MEDS: 0.9 % SODIUM CHLORIDE 1,000 ML 100 ML IV (05:35)
[2023-08-21 05:56] LABS: Alanine Aminotransferase 14 U/L (16-63); Albumin Globulin Ratio 1.1; Albumin Level 2.8 g/dL (3.4-5.0); Alkaline Phosphatase 85 U/L (46-116); Anion Gap 16.9; Aspartate Amino Transferase 26 U/L (15-37); BUN Creatinine Ratio 20.4; Bilirubin Total 0.6 mg/dL (0.2-1.0); Calcium 8.9 mg/dL (8.5-10.1); Carbon Dioxide 18.8 mmol/L (21.0-32.0); Chloride 115 mmol/L (98-107); Estimated GFR (African America >60 (>=60); Estimated GFR (Non-African Ame >60 (>=60); Globulin 2.5 g/dL; Glucose 52 mg/dL (74-106); Potassium 3.7 mmol/L (3.5-5.1); Sodium 147 mmol/L (136-145); Total Protein 5.3 g/dL (6.4-8.2)
[2023-08-21] MEDS: CEFTRIAXONE 1,000 MG in 0.9 % SODIUM CHLORIDE 50 ML 100 MG IV (09:22)
[2023-08-21] MEDS: ATORVASTATIN CALCIUM 40 MG TABLET 80 MG PO (09:22)
[2023-08-21] MEDS: LITHIUM CARBONATE 150 MG CAPSULE 300 MG PO (09:22)
[2023-08-21] MEDS: ASPIRIN 81 MG TABLET.DR PO (09:23)
[2023-08-21] MEDS: TAMSULOSIN HCL 0.4 MG CAPSULE 0.400000000000000022 MG PO (09:23)
[2023-08-21] MEDS: MIRTAZAPINE 15 MG TABLET PO (09:23)
[2023-08-21] MEDS: OMEPRAZOLE 20 MG CAPSULE.DR PO (09:23)
[2023-08-21] MEDS: GENTAMICIN SULFATE 0.3% OP SOL 100 DROP/5 ML BOTTLE OP (09:25)
[2023-08-21 09:31] VITALS: BP 157/71; PULSE 73; TEMP 36.3; O2SAT 94
--- NOTE | 2023-08-21 09:46 | P.DS_ITS ---
DS: Providers Provider Date of admission: 08/19/23 03:43 Primary care physician: Lyn Osorio MD Consults: 08/19/23 Consult to Dietitian Routine Reason For Exam: WEIGHT LOSS Reason for consultation: WEIGHT LOSS Has provider been notified: Yes Consult to Recovery Manager Routine Reason for consult:: Advanced Directives 08/19/23 07:43 Occupational Therapy Eval and Treat Routine Reason for consultation: Only if needed for Rehab Has provider been notified: No Physical Therapy Eval and Treat Routine Reason for consultation: Eval and Treat Has provider been notified: No DS: Diagnosis Discharge Diagnosis (1) Dehydration: (2) Acute UTI: (3) Altered mental status: Plan Hypotension, altered mental status, acute kidney injury secondary to acute UTI and complicated by baseline dementia-continue with fluids, continue with IV antibiotics, check in cultures later today to see if there is any growth, patient very somnolent secondary to medications, that she will be safe for discharge to home Dementia-continue with home medications-could be a progression of his dementia with the fatigue. Acute kidney injury secondary to dehydration-improved, probably back to his baseline Generalized anxiety disorder-continue with home medications, check lithium level, concerning for lithium toxicity based on renal injury GERD-continue with home medications BPH-continue with home medications Observation criteria: With his altered mental status deteriorated, now with more fatigue, significant progression of sepsis, if he does rebound with withdrawal from the benzodiazepines he could be discharged home later today. Maintain observation status DS: Summary Status at Discharge Cognitive/behavioral status at discharge: Patient was seen and evaluated in the emergency room with Hypotension, altered mental status, acute kidney injury secondary to acute UTI and complicated by baseline dementia. He was treated with IV antibiotics. IV fluids. He became restless and was given a dose of Ativan. He had significant somnolence as well as prolonged somnolence secondary to the IV Ativan. Not safe for him to be discharged yesterday. This morning he is up and awake and alert and talkative, finishing up his breakfast, overall is much improved. His urine culture did not grow anything but encouraged the family to finish out the antibiotics. At this point he is stable for discharge to home. Medications see list. Follow-up with PCP within the next week. Time Spent with Patient Time attestation: Total time spent providing and/or coordinating discharge services: Exam Constitutional Vital Signs, click to edit/add: Last Vital Signs Temp 97.4 F L 08/21/23 09:31 Pulse 73 08/21/23 09:31 Resp 18 08/21/23 09:31 BP 157/71 H 08/21/23 09:31 Pulse Ox 94 L 08/21/23 09:31 O2 Del Method Room Air 08/21/23 09:31 Documenting provider has reviewed patient's vital signs: yes Common normals: no apparent distress Chest Common normals: inspection of chest normal Respiratory Common normals: normal respiratory effort and no retractions Cardio Common normals: regular rate and regular rhythm GI Common normals: Normal to inspection, nondistended, normoactive bowel sounds present Neuro Common normals: oriented x3 and CN's II-XII intact bilaterally DS: Data Data Completed and Pending Labs on day of discharge: Labs from last 24 hours 08/21/23 04:47 WBC 6.6 RBC 3.75 L Hgb 11.5 L Hct 36.4 L MCV 97.1 H MCH 30.7 MCHC 31.6 RDW 13.7 Plt Count 137 L MPV 11.0 Neut % (Auto) 74.4 Lymph % (Auto) 17.0 L [place] % (Auto) 4.8 Eos % (Auto) 2.4 Baso % (Auto) 1.2 Neut # (Auto) 4.9 Lymph # (Auto) 1.1 L [place] # (Auto) 0.3 Eos # (Auto) 0.2 Baso # (Auto) 0.1 Abs Immat Gran (auto) 0.01 Imm/Tot Granulo (auto) 0.2 Sodium 147 H Potassium 3.7 Chloride 115 H Carbon Dioxide 18.8 L Anion Gap 16.9 BUN 22.0 H Creatinine 1.08 Est GFR ( Amer) >60 Est GFR (Non-Af Amer) >60 BUN/Creatinine Ratio 20.4 Glucose 52 L Calcium 8.9 Total Bilirubin 0.6 AST 26 ALT 14 L Alkaline Phosphatase 85 Total Protein 5.3 L Albumin 2.8 L Globulin 2.5 Albumin/Globulin Ratio 1.1 Discharge Plan Discharge Disposition: Home Health Service Discharge Medications: New levofloxacin 500 mg tablet 500 mg PO DAILY 10 Days Qty: 10 0RF Continued lithium carbonate 300 mg capsule 300 mg PO DAILY baclofen 10 mg tablet 10 mg PO BEDTIME tramadol 50 mg tablet 50 mg PO BEDTIME aspirin 81 mg tablet,delayed release (DR/EC) 81 mg PO DAILY atorvastatin 80 mg tablet 80 mg PO DAILY amlodipine 5 mg tablet 5 mg PO DAILY telmisartan 80 mg tablet 80 mg PO DAILY mirtazapine 15 mg tablet 15 mg PO DAILY omeprazole 20 mg capsule,delayed release(DR/EC) 20 mg PO DAILY gentamicin 0.3 % drops 1 drp ophthalmic (eye) Q6H tamsulosin 0.4 mg capsule 0.4 mg PO .morning donepezil 5 mg tablet 5 mg PO .QHS Activity: increase activity as tolerated Diet: advance to your usual diet Print Language: Urdu Patient Instructions: Urinary Tract Infection in Older Adults (DC) Furnace Process Plant Operator/Admissions Dean Instructions: Discharge with [facility], phone number is [phone]. They should contact within 48 hours of discharge. If you have not heard from them within 48 hours, reach out to the number listed above. Private Caregiver list provided and list of nursing facilities in the area provided as well. Forms: Portal Instructions Follow Up Appointments: Aug.25 @ 10:30am with Dr. Osorio [phone] Discharge Date/Time: 08/21/23 13:08
[2023-08-21] MEDS: LEVOFLOXACIN IN DEXTROSE 5 % 750 MG/150 ML IV.SOLN 100 MG IV (10:23)
[2023-08-21 12:08] VITALS: O2SAT 93
--- NOTE | 2023-08-21 13:08 | SWNOTE1 ---
Discharge med rec, CRF, therapy notes from yesterday, and progress note from yesterday sent to [facility]. Pt is going home with [facility]. SW did not discuss palliative care with pt's son as doctor spoke with him this morning and there was not a need for palliative care at this time.
== END 2023-08-21 13:08 | disposition home health service (06) ==
LOC: ER 03:17 → MS 03:44
PROVIDERS: Registered Nurse; Admitting Provider Family Medicine; Emergency Provider Internal Medicine; PCP Family Medicine; Visit Provider Family Medicine
DX: N39.0 Urinary tract infection, site not specified (principal); E86.0 Dehydration; N17.9 Acute kidney failure, unspecified; E43 Unspecified severe protein-calorie malnutrition; Z68.20 Body mass index [BMI] 20.0-20.9, adult; F03.90 Unspecified dementia, unspecified severity, without behavioral disturbance, psychotic disturbance, mood disturbance, and anxiety; F41.1 Generalized anxiety disorder; K21.9 Gastro-esophageal reflux disease without esophagitis; N40.0 Benign prostatic hyperplasia without lower urinary tract symptoms; I95.9 Hypotension, unspecified; F31.9 Bipolar disorder, unspecified; Z85.89 Personal history of malignant neoplasm of other organs and systems; Z85.51 Personal history of malignant neoplasm of bladder; Z79.82 Long term (current) use of aspirin; Z79.899 Other long term (current) drug therapy; Z85.828 Personal history of other malignant neoplasm of skin; Z86.73 Personal history of transient ischemic attack (TIA), and cerebral infarction without residual deficits; Z98.890 Other specified postprocedural states; Z90.79 Acquired absence of other genital organ(s)
CPT/HCPCS: 36415; 51798; 71045; 80048; 80053; 80076; 80178; 81001; 83605; 83735; 83880; 84436; 84443; 84484; 85025; 87086; 94667; 94761; 96361; 96365; 96366; 96367; 96375; 97161; 97165; 97530; 97535; 99285; G0378

== ENCOUNTER 2023-08-25 10:11 | Outpatient (OUT) | payer MEDICARE, BC, SELFPAY ==
--- NOTE | 2023-08-25 10:29 | MR_ITS ---
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 TECHNIQUE: Multiplanar, multisequential MRI images of brain were obtained without and with injection of contrast. FINDINGS: The cerebral sulci as well as ventricular system are enlarged consistent with mild ex vacuo cerebral volume loss. There is no restricted diffusion. Hyperintensities on T2 and FLAIR images in the germain radiata and centrum semiovale with sparing of U fibers are nonspecific, statistically most likely consistent with microvascular ischemic changes. 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 There is no intracranial mass, mass effect, midline shift, intra or extra-axial fluid collection or large hemorrhage. No abnormal enhancing lesion is noted. Normal flow-void in the intracranial vessels is noted. There is status post bilateral lens replacement. The visualized portions of orbits, mastoid air cells as well as paranasal sinuses are unremarkable. MR/MR head/brain wo/w con IMPRESSION: No acute intracranial process is noted. No finding to suggest a typical neurodegenerative process. Electronically authenticated by: YOANA EDWARD Date: 08/25/2023 12:30
[2023-08-25 10:45] LABS: Estimated GFR (African America 59 (>=60); Estimated GFR (Non-African Ame 49 (>=60)
== END 2023-08-25 10:12 | disposition home or self-care (01) ==
LOC: MRI 10:11
PROVIDERS: PCP Family Medicine; Visit Provider Psychiatry & Neurology Neurology
DX: G30.1 Alzheimer's disease with late onset (principal)
CPT/HCPCS: 36415; 70553; 82565; 82607; 84443; 84520; A9575